=== PATIENT | male | born 1950 | race Caucasian/White ===

== ENCOUNTER 2020-09-20 04:17 | Emergency (ER) | payer OTHER, MEDICARE, SELFPAY ==
[2020-09-20] VITALS (11 sets, daily range): BP systolic 142–166; BP diastolic 71–78; PULSE 67–73; RESP 11–26; TEMP 36.6; O2SAT 96–98
--- NOTE | 2020-09-20 04:15 | RT.EKG_ITS ---
APPROVED REPORT Exam: Resting ECG Reason for Exam: sob Patient Location: E HR:68 bpm ECG Measurements Heart Rate 68 AXIS DE 176 P 29 QRSd 89 QRS 3 QT 389 T 76 QTc 415 Conclusion Sinus rhythm...normal P axis, V-rate 60- 99 Anterior infarct, old...Q >40mS, abnormal ST-T, V2-V5 Physician: no stemi, no prior for comparison
--- NOTE | 2020-09-20 04:30 | DI.RAD_ITS ---
Exam(s) XR CHEST 2V PA LATERAL EXAM: XR CHEST 2V PA LATERAL CLINICAL HISTORY: episodic sob TECHNIQUE: COMPARISON: No exams were available for comparison FINDINGS: The heart is not enlarged. There are multiple sternal sutures. Lungs appear grossly clear and well expanded. No pleural effusion seen. IMPRESSION: No evidence of acute process. RADIATION DOSE DELIVERED: Total DLP
--- NOTE | 2020-09-20 04:44 | ED.GENADUL_ITS ---
Discharge Plan Disposition Patient Disposition: HOME Condition: Good Discharge Details Clinical Impression: Acute dyspnea Primary Care Provider: Manjula Avery ED Provider: Angel Luis Fatima Home Meds and New Rx's Prescriptions: Continued omeprazole 20 mg Capsule,Delayed Release(Dr/Ec) 40 mg PO BID RF: 0 aspirin 81 mg Tablet 81 mg PO DAILY RF: 0 cyclobenzaprine 10 mg Tablet 10 mg PO TID PRN PRNRF: 0 atorvastatin [Lipitor] 40 mg Tablet 40 mg PO DAILY RF: 0 propranolol 160 mg Capsule,Extended Release 24 Hr 160 mg PO DAILY RF: 0 propranolol 60 mg Capsule,Extended Release 24 Hr 60 mg PO DAILY RF: 0 Humulin 70/30 U-100 Insulin 100 unit/mL (70-30) Suspension 21 unit SUBCUT DAILY AM RF: 0 tramadol 50 mg Tablet 100 mg PO PRN PRNRF: 0 ferrous sulfate 325 mg (65 mg iron) Tablet 325 mg PO DAILY RF: 0 gabapentin 300 mg Capsule 300 mg PO TID RF: 0 hydrochlorothiazide 25 mg Tablet 25 mg PO DAILY RF: 0 topiramate 50 mg Tablet 50 mg PO BID RF: 0 Victoza 3-Bartolo 0.6 mg/0.1 mL (18 mg/3 mL) Pen Injector 1.8 mg SUBCUT DAILY RF: 0 empagliflozin 10 mg Tablet 10 mg PO DAILY RF: 0 polyethylene glycol 3350 [Miralax] 17 gram Powder In Packet 17 g PO BID PRN PRNRF: 0 Discharge Instructions Instructions: Dyspnea (ED) Additional Instructions: At this time your work-up has been very reassuring. Your EKG, heart markers, and chest x-ray show no significant abnormalities. As we discussed together you do have slight worsening of your kidney function which is likely secondary to the recent ibuprofen you have been taking. Please avoid taking this. Please drink plenty of water and stay well-hydrated. I would recommend 10 to 12 cups of water per day. Please follow-up closely with your family doctor for reassessment. Getting a sleep apnea test would certainly be reasonable in the future as we discussed together If you notice any worsening of your symptoms, or any new symptoms such as vomiting, diarrhea, fever, chills, shortness of breath, chest pain, numbness, weakness, or fainting , please return immediately to the emergency department for reevaluation. Please follow up with your primary care provider as soon as possible for reassessment and reevaluation. As always, it was a pleasure participating in your medical care today. Referrals: Manjula Avery [Primary Care Provider] - Medical Decision Making This is a pleasant 70-year-old male with a past medical history of type 2 diabetes on insulin, hypertension, GERD, CABG in 2015, previous C3-C7 laminectomy with C3-T1 instrumented fusion who presents today for evaluation of shortness of breath. Patient states that yesterday he was totally fine, no chest pain shortness of breath or other abnormalities whatsoever, and then at 3 AM this morning he awoke suddenly feeling extremely short of breath like he could not catch his breath at all. He had no pain, pleuritic chest pain, chest tightness, tearing or ripping sensation, arm neck or shoulder pain, or bandlike sensation around the chest. He states that the symptoms were not in any way similar to when he had his chest pain associated with his CABG. EMS was called, and upon their arrival the patient symptoms had completely resolved he had felt much better. He came in by private vehicle to the ER for further assessment. He does admit to the bedroom being notably warm, but aside for this noted nothing else. He does admit to feeling mucousy in the back of his throat, but denies any sore throat, cough, fever, chills or difficulty breathing now. No other complaints at this time. No exertional chest pain or dyspnea. No history of asthma or COPD. The patient does not smoke. No other modifying factors. Denies PE risk factors such as recent long car rides, immobilization, recent surgery, prior history of DVT or PE, family history of PE or DVT, morbid obesity, exogenous estrogen and smoking, hemoptysis, history of cancer. Physical exam is notably unremarkable and very reassuring. No calf tenderness, no chest pain. Lung sounds are normal. Vital signs are notably stable. No wheezes rales or rhonchi in the lungs differential. At this time includes an episode of mucus or mucous plug causing the patient transient shortness of breath, cardiac etiology or dysrhythmia, or atypical pulmonary etiology. Patient is low risk, PERC and Wells score. We will get a D-dimer for rule out. Initial EKG shows some old Q waves, but no STEMI or other significant abnormality. No prior EKG for comparison. We will get a 2 view chest x-ray, evaluate for cardiac abnormalities, evaluate for signs of heart strain with proBNP. Monitor closely and reassess. 5:46 AM Patient's laboratory work-up is returned, no white count bandemia or left shift. D-dimer is normal. Troponin is normal. Creatinine is slightly elevated at 1.5, patient does admit to me that he has been taking some extra ibuprofen. I recommend he stop taking this for the time being. proBNP is normal suggesting no heart strain. Symptoms appear inconsistent with ACS, PE, or dissection. Chest x-ray is negative for pneumonia infiltrate or other abnormality. On reassessment the patient continues to remain asymptomatic and feels well. We had a long discussion about repeat troponin and continued observation versus discharge, their shared decision-making process understanding the risks and benefits the patient would like to be discharged hold off on additional testing. Patient appears notably stable at this time clinically and shows no acute evidence of acute life-threatening etiology. I suspect that his transient brief symptoms of shortness of breath are likely related to a combination of sleep apnea, dry mouth. Patient will be discharged home. I have extensively reviewed the treatment plan and discharge instructions with the patient. I have addressed all patient concerns at this time. The patient was made aware of what symptoms to monitor for that would warrant a return to the emergency department. Discussed the plan with the patient, they demonstrate verbal understanding and agreement with our assessment and plan at this time. The documentation in this chart was dictated using [employer] dictation software. Please excuse any dictation errors. FINDINGS: Lungs: Unremarkable. No consolidation. Pleural spaces: Unremarkable. No pleural effusion. No pneumothorax. Heart/Mediastinum: Unremarkable. No cardiomegaly. Bones/joints: Median sternotomy wires noted. IMPRESSION: No acute findings. Thank you for allowing us to participate in the care of your patient. Dictated and Authenticated by: Hardeep Lim MD [facility] General Date/Time Provider Initiated Documentation: 09/20/20 04:27 . HPI Narrative: This is a pleasant 70-year-old male with a past medical history of type 2 diabetes on insulin, hypertension, GERD, CABG in 2015, previous C3-C7 laminectomy with C3-T1 instrumented fusion who presents today for evaluation of shortness of breath. Patient states that yesterday he was totally fine, no chest pain shortness of breath or other abnormalities whatsoever, and then at 3 AM this morning he awoke suddenly feeling extremely short of breath like he could not catch his breath at all. He had no pain, pleuritic chest pain, chest tightness, tearing or ripping sensation, arm neck or shoulder pain, or bandlike sensation around the chest. He states that the symptoms were not in any way similar to when he had his chest pain associated with his CABG. EMS was called, and upon their arrival the patient symptoms had completely resolved he had felt much better. He came in by private vehicle to the ER for further assessment. He does admit to the bedroom being notably warm, but aside for this noted nothing else. He does admit to feeling mucousy in the back of his throat, but denies any sore throat, cough, fever, chills or difficulty breathing now. No other complaints at this time. No exertional chest pain or dyspnea. No history of asthma or COPD. The patient does not smoke. No other modifying factors. Denies PE risk factors such as recent long car rides, immobilization, recent surgery, prior history of DVT or PE, family history of PE or DVT, morbid obesity, exogenous estrogen and smoking, hemoptysis, history of cancer. Related Data Home Medications Medication Instructions Recorded Confirmed Humulin 70/30 U-100 Insulin 21 unit SUBCUT DAILY AM 09/20/20 09/20/20 Victoza 3-Bartolo 1.8 mg SUBCUT DAILY 09/20/20 09/20/20 aspirin 81 mg PO DAILY 09/20/20 09/20/20 atorvastatin [Lipitor] 40 mg PO DAILY 09/20/20 09/20/20 cyclobenzaprine 10 mg PO TID PRN PRN 09/20/20 09/20/20 empagliflozin 10 mg PO DAILY 09/20/20 09/20/20 ferrous sulfate 325 mg PO DAILY 09/20/20 09/20/20 gabapentin 300 mg PO TID 09/20/20 09/20/20 hydrochlorothiazide 25 mg PO DAILY 09/20/20 09/20/20 omeprazole 40 mg PO BID 09/20/20 09/20/20 polyethylene glycol 3350 [Miralax] 17 g PO BID PRN PRN 09/20/20 09/20/20 propranolol 60 mg PO DAILY 09/20/20 09/20/20 propranolol 160 mg PO DAILY 09/20/20 09/20/20 topiramate 50 mg PO BID 09/20/20 09/20/20 tramadol 100 mg PO PRN PRN 09/20/20 09/20/20 Allergies Allergy/AdvReac Type Severity Reaction Status Date / Time diazepam [From Valium] AdvReac Unverified 09/20/20 04:42 oxycodone AdvReac Unverified 09/20/20 04:41 General Stated Complaint: SOB KARSON: 2 Review of Systems All systems reviewed & are unremarkable except as noted in HPI and below PFSH Social History Smoking/Tobacco Use Status: Current-Occasional Tobacco Type: cigars Smoking risk assessment performed?: Yes Alcohol Intake: current Alcohol Intake frequency: a few times a month Drug use: Never Substance use type: does not use Do you feel safe at home: Yes Do you feel safe in your relationship?: Yes Exam Narrative Exam Narrative: 1.Const: Well-nourished, Well-developed, appearing stated age 2.Eyes: PERRL, no conjunctival injection, and symmetrical lids. 3.ENT: Atraumatic external nose and ears. Moist MM. Neck: Symmetric, trachea midline, No thyromegaly. 4.CVS: +S1/S2, No murmurs or gallops. Peripheral pulses 2+ and equal in all extremities. Brisk capillary refill in all extremities. 5.RESP: Unlabored respiratory effort. Clear to auscultation bilaterally. No wheezes rales or rhonchi 6.GI: Soft, Nontender/Nondistended, No hepatosplenomegaly. No guarding or rebound. 7.MSK: Normocephalic/Atraumatic, Extremities w/o deformity or ttp No cyanosis or clubbing, Normal movement of all extremities, no calf tenderness 8.Skin: Warm, Dry. No rashes or lesions. 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 Sensation grossly intact, no focal neurologic deficits. 10.Psych: (AAO) x3. Appropriate mood and affect Course Vital Signs Vital signs: Vital Signs Temperature 36.6 C 09/20/20 04:24 Pulse 70 09/20/20 04:24 Respiratory Rate 21 09/20/20 04:24 Blood Pressure 156/78 H 09/20/20 04:24 Pulse Oximetry 97 09/20/20 04:24 Temperature 36.6 C 09/20/20 04:24 Temperature Source Skin 09/20/20 04:24 Pulse 70 09/20/20 04:24 Respiratory Rate 09/20/20 04:24 Blood Pressure 156/78 H 09/20/20 04:24 Blood Pressure Position Supine 09/20/20 04:24 Pulse Oximetry 97 09/20/20 04:24 Oxygen Delivery Method Room Air 09/20/20 04:24 Oxygen Flow Rate 0 09/20/20 04:24 End Tidal Co2 0 09/20/20 04:24
[2020-09-20 05:01] LABS: Abs Immature Grans 0.03 10^3/uL (0.0-0.06); Absolute Basophil Count 0.03 10^3/uL (0.0-0.2); Absolute Eosinophil Count 0.39 10^3/uL (0.0-0.7); Absolute Lymphocyte Count 2.91 10^3/uL (1.2-3.4); Absolute Monocyte Count 0.47 10^3/uL (0.1-0.8); Absolute Neutrophil Count 3.67 10^3/uL (1.2-6.7); Basophils % 0.4; Eosinophils % 5.2; HCT 42.5 % (40.0-50.0); HGB 14.3 g/dL (13.5-17.5); Immature Grans % 0.4; Lymphocytes % 38.8; MCH 28.9 pg (27.0-33.0); MCHC 33.6 % (32.0-36.0); MPV 9.5 fL (8.0-11.0); Monocytes % 6.3; Neutrophils % 48.9; Nucleated RBC 0 %; Platelet Count 181 10^3/uL (130-400); RBC 4.94 10^6/uL (4.36-5.78); RDW 13.7 % (11.8-14.1); RDW-SD 42.6 fL
[2020-09-20 05:23] LABS: ALT 26 U/L (16-63); AST 13 U/L (15-37); Albumin 3.6 g/dL (3.4-5.0); Alkaline Phosphatase 101 U/L (46-116); Anion Gap 9.9 mmol/L (3-11); BUN 33 mg/dL (7-18); Bilirubin, Total 0.4 mg/dL (0.2-1.0); CO2 25.1 mmol/L (21.0-32.0); CREATININE 1.5 mg/dL (0.70-1.30); Calcium 8.6 mg/dL (8.5-10.1); Chloride 105 mmol/L (98-107); Glucose 168 mg/dL (74-106); NT-proBNP 105 pg/mL (<300); Potassium 3.6 mmol/L (3.5-5.1); Sodium 140 mmol/L (136-145); Total Protein 7.2 g/dL (6.4-8.2)
[2020-09-20 05:28] LABS: Troponin I < 0.05 ng/mL (<0.06)
[2020-09-20 05:30] LABS: D-Dimer 479 ng/mlFEU (<500)
--- NOTE | 2020-09-20 05:31 | DI.VRAD_ITS ---
PROCEDURE INFORMATION: Exam: XR Chest Exam date and time: 09/20/2020 4:38 AM Age: 70 years old Clinical indication: Shortness of breath; Prior surgery; Surgery type: Heart (2015), cspine TECHNIQUE: Imaging protocol: XR of the chest. Views: 2 views. COMPARISON: No relevant prior studies available. FINDINGS: Lungs: Unremarkable. No consolidation. Pleural spaces: Unremarkable. No pleural effusion. No pneumothorax. Heart/Mediastinum: Unremarkable. No cardiomegaly. Bones/joints: Median sternotomy wires noted. IMPRESSION: No acute findings. Dictated and Authenticated by: Hardeep Lim MD. Ordering:SOL Hein MD
== END 2020-09-20 05:53 | disposition home or self-care (01) ==
PROVIDERS: Emergency Provider Student in an Organized Health Care Education/Training Program; PCP Internal Medicine
DX: R06.02 Shortness of breath (principal)
CPT/HCPCS: 80053; 93005; 99285; 71046; 83735; 83880; 84484; 85025; 85379; 93010; 99284

== ENCOUNTER 2021-08-12 14:41 | Outpatient (CLI) | payer MEDICARE, SELFPAY ==
--- NOTE | 2021-08-12 10:49 | DI.CT_ITS ---
Exam(s) CT CHEST/ABD/PEL W EXAM: CT CHEST/ABD/PEL W TECHNIQUE: CT examination of the chest, abdomen, and pelvis was performed with bolus infusion of 100 cc of Omnipaque 350. COMPARISON: No exams were available for comparison FINDINGS: There is no evidence of a thoracic vascular injury. The lungs are clear. No pneumothorax or pleural effusion. No mediastinal hematoma. No adenopathy in the chest. Tracheobronchial tree appears intact. Note is made of hiatal hernia. Sternal sutures and multiple mediastinal vascular clips noted. The liver, spleen, and pancreas appear normal. Gallbladder and bile ducts are normal. Adrenals and kidneys are unremarkable. No evidence of urinary tract injury or obstruction. No abdominal or pelvic vascular injury seen. No abdominal or pelvic adenopathy. No significant abdomi nal wall hernia or hematoma. No evidence of bowel injury. There are mildly displaced fractures of the left 8th and 9th ribs posterolaterally.. IMPRESSION: Left 8th and 9th rib fractures. No additional significant findings.. RADIATION DOSE DELIVERED: 1,369.61mGy.cm Total DLP 1,369.61mGy.cm Total DLP !Error CTDIvol DATA REPOSITORY: All CT scans at this facility are submitted to the National Radiology Data Registry (NRDR) Dose Index Registry (DIR) with the [employer] ([employer]). RADIATION OPTIMIZATION: All CT scans at this facility use at least one of these dose optimization te chniques: automated exposure control; mA and/or kV adjustment per patient size (includes targeted exa ms where dose is matched to clinical indication); or iterative reconstruction.
[2021-08-12] MEDS: Breeza Beverage 473 ML BTL PO ×2 (11:22→11:23)
[2021-08-12] MEDS: Omnipaque 350 MG/ML 50 ML BTL PO (11:23)
[2021-08-12 12:03] LABS: CREATININE 1.6 mg/dL (0.70-1.30); Estimated GFR 42.95 (mL/min/1.73m2)
[2021-08-12] MEDS: Omnipaque 350 MG/ML 100 ML BTL IJ (13:21)
== END 2021-08-12 15:01 ==
PROVIDERS: PCP Internal Medicine; Visit Provider Physician Assistant
DX: R07.89 Other chest pain (principal); R06.00 Dyspnea, unspecified; W19.XXXA Unspecified fall, initial encounter; Z01.812 Encounter for preprocedural laboratory examination; S22.42XA Multiple fractures of ribs, left side, initial encounter for closed fracture
CPT/HCPCS: 74177; 71260; 82565; J3490; Q9967